=== PATIENT | female | born 1965 | race Caucasian/White ===

== ENCOUNTER 2021-03-26 03:26 | Emergency (ER) | payer OTHER ==
[~2021-03-26] VITALS: Ht 162.6 cm; Wt 68.0 kg
[2021-03-26 03:39] VITALS: BP 148/92
== END 2021-03-26 04:55 | disposition left against medical advice (07) ==
LOC: ER 03:26 → EDBD 03:26 → ER 04:55
DX: F10.10 Alcohol abuse, uncomplicated (principal); M79.18 Myalgia, other site; Y90.9 Presence of alcohol in blood, level not specified